=== PATIENT | male | born 1960 | race Two or more races ===

== ENCOUNTER 2020-05-21 09:23 | Inpatient (IN) | payer OTHER ==
[~2020-05-21] VITALS: Ht 172.7 cm; Wt 70.1 kg
[2020-05-21] MEDS ORDERED: MethylPREDNISolone SOD SUCC 125 MG/2 ML VIAL IVP ONE (09:45)
[2020-05-21] MEDS ORDERED: AMLO-257 PO (10:04)
[2020-05-21] MEDS ORDERED: ENAL20 PO (10:04)
[2020-05-21] MEDS ORDERED: SITA100 PO (10:04)
[2020-05-21 10:53] LABS: BASOPHILS % (AUTO) 0.4 % (0.0-2.0); EOSINOPHILS % (AUTO) 0.3 % (1.0-6.0); HEMATOCRIT 30.4 % (41-53); HEMOGLOBIN 10.3 g/dL (13.5-17.5); LYMPHOCYTES % (AUTO) 10.7 % (22.0-44.0); MEAN CORPUSCULAR HEMOGLOBIN 30.3 pg (26.0-34.0); MEAN CORPUSCULAR VOLUME 89 fL (80-100); MONOCYTES # (AUTO) 0.4 K/uL (0.1-1.0); MONOCYTES % (AUTO) 4.6 % (2.0-9.0); PLATELET COUNT (AUTO) 322 K/uL (150-450); RED BLOOD CELL COUNT(AUTO) 3.42 MIL/uL (4.50-5.90); RED CELL DISTRIBUTION WIDTH 12.6 % (11.5-14.5)
[2020-05-21 11:12] LABS: CALCIUM, TOTAL 8.5 mg/dL (8.8-10.5); CREATININE 2.33 mg/dL (0.60-1.30); POTASSIUM 4.3 mmol/L (3.5-5.1)
[2020-05-21 11:24] LABS: ALBUMIN 2.1 g/dL (3.4-5.0); BILIRUBIN,TOTAL 0.2 mg/dL (0.1-1.0); TOTAL PROTEIN, SERUM 6.6 g/dL (6.4-8.2)
[2020-05-21] MEDS ORDERED: DEXTROSE 50%-WATER 25 GM/50 ML SYRINGE IVP PRN (12:45)
[2020-05-21] MEDS ORDERED: SODIUM CHLORIDE 0.9% 1,000 ML IV ONE (12:45)
[2020-05-21] MEDS: AmLODIPine BESYLATE 5 MG TABLET PO SCH (12:54)
[2020-05-21] MEDS: LOSARTAN POTASSIUM 25 MG TABLET PO SCH ×2 (13:53→21:55)
[2020-05-21] MEDS: INSULIN LISPRO 100 UNITS/ML SQ PRN ×2 (18:02→22:00)
[2020-05-21 18:13] VITALS: BP 160/100
[2020-05-21 20:18] VITALS: BP 173/94
[2020-05-21 21:42] LABS: GLUCOMETER DEV NAME(LOC) 5N.1B; GLUCOSE,POINT OF CARE 215 MG/DL (70-110)
[2020-05-21] MEDS: HEPARIN SODIUM,PORCINE 5,000 UNITS/ML VIAL SQ SCH (21:55)
[2020-05-21] MEDS: DOCUSATE SODIUM 100 MG CAPSULE PO SCH (21:55)
[2020-05-21] MEDS: ACETAMINOPHEN 325 MG TABLET PO PRN (22:06)
[2020-05-21 23:31] LABS: GLUCOMETER DEV NAME(LOC) 5N.1B; GLUCOSE,POINT OF CARE 202 MG/DL (70-110)
[2020-05-22 00:17] VITALS: BP 142/78
[2020-05-22 01:28] LABS: APPEARANCE,URINE CLEAR (CLEAR); BILIRUBIN,URINE NEGATIVE (NEGATIVE); GLUCOSE, URINE (UA) 500 mg/dL (NEGATIVE); KETONES,URINE NEGATIVE (NEGATIVE); LEUKOCYTE ESTERASE ,URINE NEGATIVE (NEGATIVE); NITRATE,URINE NEGATIVE (NEGATIVE); OCCULT BLOOD,URINE SMALL (NEGATIVE); PROTEIN,URINE SEE CONFIRM (NEGATIVE); UROBILINOGEN,URINE 0.2 mg/dL (<=1.0)
[2020-05-22 01:36] LABS: AMPHET/METH SCREEN,URINE NEGATIVE (NEGATIVE); BARBITURATE SCREEN, URINE NEGATIVE (NEGATIVE); BENZODIAZEPINES SCREEN,URINE NEGATIVE (NEGATIVE); CANNABINOID SCREEN,URINE NEGATIVE (NEGATIVE); COCAINE SCREEN,URINE NEGATIVE (NEGATIVE); METHADONE SCREEN, URINE NEGATIVE (NEGATIVE); OPIATE SCREEN,URINE NEGATIVE (NEGATIVE); PHENCYCLIDINE SCREEN,URINE NEGATIVE (NEGATIVE)
[2020-05-22 01:42] LABS: SULFOSALICYLIC ACID,URINE 4+ (Negative)
[2020-05-22 01:43] LABS: BACTERIA,URINE Rare /HPF (None Seen)
[2020-05-22 05:18] VITALS: BP 190/94
[2020-05-22] MEDS ORDERED: LABETALOL HCL 5 MG/ML 20 ML VIAL IVP ONE (06:00)
[2020-05-22 07:04] LABS: CALCIUM, TOTAL 8.8 mg/dL (8.8-10.5); CREATININE 2.53 mg/dL (0.60-1.30); POTASSIUM 3.6 mmol/L (3.5-5.1)
[2020-05-22 07:20] LABS: GLUCOMETER DEV NAME(LOC) 5N.1B; GLUCOSE,POINT OF CARE 161 MG/DL (70-110)
[2020-05-22 08:06] VITALS: BP 152/82
[2020-05-22] MEDS: FAMOTIDINE 20 MG TABLET PO SCH (08:18)
[2020-05-22] MEDS: HEPARIN SODIUM,PORCINE 5,000 UNITS/ML VIAL SQ SCH ×2 (08:18→21:38)
[2020-05-22] MEDS: DOCUSATE SODIUM 100 MG CAPSULE PO SCH ×2 (08:18→21:37)
[2020-05-22] MEDS: LOSARTAN POTASSIUM 25 MG TABLET PO SCH ×2 (08:18→21:37)
[2020-05-22] MEDS: AmLODIPine BESYLATE 5 MG TABLET PO SCH (08:18)
[2020-05-22] MEDS: ASPIRIN 81 MG CHEWABLE TABLET PO SCH (08:18)
[2020-05-22] MEDS: INSULIN LISPRO 100 UNITS/ML SQ PRN ×4 (10:36→21:48)
[2020-05-22 11:28] VITALS: BP 155/86
[2020-05-22 11:52] LABS: GLUCOMETER DEV NAME(LOC) 5N.1B; GLUCOSE,POINT OF CARE 387 MG/DL (70-110)
[2020-05-22] MEDS ORDERED: SitaGLIPtin PHOSPHATE 100 MG TABLET PO ONE (13:00)
[2020-05-22] MEDS ORDERED: AmLODIPine BESYLATE 5 MG TABLET PO ONE (13:00)
[2020-05-22] MEDS: SODIUM CHLORIDE 0.45% 1,000 ML IV SCH (18:23)
[2020-05-22 20:02] VITALS: BP 158/97
[2020-05-22 20:40] LABS: GLUCOMETER DEV NAME(LOC) 5N.3; GLUCOSE,POINT OF CARE 232 MG/DL (70-110)
[2020-05-22] MEDS: ACETAMINOPHEN 325 MG TABLET PO PRN (21:38)
[2020-05-22 23:35] VITALS: BP 145/93
[2020-05-23 00:18] LABS: CREATININE,URINE RANDOM 52.2 mg/dL (30.0-125.0)
[2020-05-23 04:34] VITALS: BP 163/93
[2020-05-23 05:02] LABS: GLUCOMETER DEV NAME(LOC) 5N.3; GLUCOSE,POINT OF CARE 213 MG/DL (70-110)
[2020-05-23] MEDS: SODIUM CHLORIDE 0.45% 1,000 ML IV SCH (06:29)
[2020-05-23] MEDS: INSULIN LISPRO 100 UNITS/ML SQ PRN ×3 (06:39→17:03)
[2020-05-23 07:40] VITALS: BP 169/95
[2020-05-23] MEDS: ASPIRIN 81 MG CHEWABLE TABLET PO SCH (08:03)
[2020-05-23] MEDS: DOCUSATE SODIUM 100 MG CAPSULE PO SCH ×2 (08:03→21:09)
[2020-05-23] MEDS: FAMOTIDINE 20 MG TABLET PO SCH (08:04)
[2020-05-23] MEDS: AmLODIPine BESYLATE 10 MG TABLET PO SCH (08:05)
[2020-05-23] MEDS: HEPARIN SODIUM,PORCINE 5,000 UNITS/ML VIAL SQ SCH ×2 (08:05→21:10)
[2020-05-23] MEDS: LOSARTAN POTASSIUM 25 MG TABLET PO SCH ×2 (08:05→11:34)
[2020-05-23] MEDS: SitaGLIPtin PHOSPHATE 50 MG TABLET PO SCH (08:05)
[2020-05-23] MEDS ORDERED: SitaGLIPtin PHOSPHATE 100 MG TABLET PO SCH (09:00)
[2020-05-23] MEDS ORDERED: LOSARTAN POTASSIUM 50 MG TABLET PO ONE (10:30)
[2020-05-23 11:25] VITALS: BP 162/92
[2020-05-23 11:35] LABS: BASOPHILS % (AUTO) 0.6 % (0.0-2.0); EOSINOPHILS % (AUTO) 0.4 % (1.0-6.0); HEMATOCRIT 29.5 % (41-53); HEMOGLOBIN 10.1 g/dL (13.5-17.5); LYMPHOCYTES # (AUTO) 1.1 K/uL (1.0-4.8); LYMPHOCYTES % (AUTO) 14.9 % (22.0-44.0); MEAN CORPUSCULAR HEMOGLOBIN 30.3 pg (26.0-34.0); MEAN CORPUSCULAR HGB CONC 34.2 G/dL (31.0-37.0); MEAN CORPUSCULAR VOLUME 89 fL (80-100); MONOCYTES # (AUTO) 0.4 K/uL (0.1-1.0); NEUTROPHILS # (AUTO) 6.1 K/uL (1.8-7.7); NEUTROPHILS % (AUTO) 79.1 % (40.0-70.0); PLATELET COUNT (AUTO) 301 K/uL (150-450); RED BLOOD CELL COUNT(AUTO) 3.33 MIL/uL (4.50-5.90); RED CELL DISTRIBUTION WIDTH 12.6 % (11.5-14.5)
[2020-05-23 11:44] LABS: CALCIUM, TOTAL 8.7 mg/dL (8.8-10.5); CREATININE 2.42 mg/dL (0.60-1.30); POTASSIUM 4.1 mmol/L (3.5-5.1)
[2020-05-23 11:47] LABS: MAGNESIUM 1.6 mg/dL (1.80-2.40); PHOSPHORUS 3.6 mg/dL (2.5-4.9)
[2020-05-23 15:17] VITALS: BP 183/91
[2020-05-23] MEDS ORDERED: CloNIDine HCL 0.2 MG TABLET ONE (18:06)
[2020-05-23] MEDS ORDERED: HydrALAZINE HCL 20 MG/ML VIAL IVP PRN (18:15)
[2020-05-23] MEDS ORDERED: CloNIDine HCL 0.2 MG TABLET PO ONE (18:30)
[2020-05-23 19:32] VITALS: BP 127/76
[2020-05-23] MEDS ORDERED: MAGNESIUM OXIDE 400 MG TABLET PO ONE (20:15)
[2020-05-23] MEDS: LOSARTAN POTASSIUM 50 MG TABLET PO SCH (21:11)
[2020-05-23 23:48] VITALS: BP 152/83
[2020-05-24] MEDS: CloNIDine HCL 0.1 MG TABLET PO SCH ×3 (00:38→17:09)
[2020-05-24 04:43] VITALS: BP 146/80
[2020-05-24 06:52] LABS: % IRON SATURATION 49.6 % (30-44)
[2020-05-24 07:07] LABS: CALCIUM, TOTAL 8.2 mg/dL (8.8-10.5); CREATININE 2.49 mg/dL (0.60-1.30); MAGNESIUM 1.4 mg/dL (1.80-2.40); PHOSPHORUS 3.5 mg/dL (2.5-4.9); POTASSIUM 3.7 mmol/L (3.5-5.1)
[2020-05-24 07:55] VITALS: BP 165/94
[2020-05-24] MEDS: SitaGLIPtin PHOSPHATE 50 MG TABLET PO SCH (08:06)
[2020-05-24] MEDS: AmLODIPine BESYLATE 10 MG TABLET PO SCH (08:06)
[2020-05-24] MEDS: ASPIRIN 81 MG CHEWABLE TABLET PO SCH (08:06)
[2020-05-24] MEDS: DOCUSATE SODIUM 100 MG CAPSULE PO SCH ×2 (08:06→21:00)
[2020-05-24] MEDS: LOSARTAN POTASSIUM 50 MG TABLET PO SCH ×2 (08:06→21:17)
[2020-05-24] MEDS: LOSARTAN POTASSIUM 25 MG TABLET PO SCH ×2 (08:06→21:00)
[2020-05-24] MEDS: FAMOTIDINE 20 MG TABLET PO SCH (08:06)
[2020-05-24] MEDS: HEPARIN SODIUM,PORCINE 5,000 UNITS/ML VIAL SQ SCH ×2 (08:07→21:00)
[2020-05-24] MEDS ORDERED: MAGNESIUM SULFATE 3 GM in DEXTROSE 5%-WATER 100 ML IV ONE (09:30)
[2020-05-24 11:41] VITALS: BP 144/91
[2020-05-24] MEDS: INSULIN LISPRO 100 UNITS/ML SQ PRN ×2 (11:53→17:06)
[2020-05-24 17:09] VITALS: BP 177/88
[2020-05-24 20:08] VITALS: BP 158/79
[2020-05-24] MEDS ORDERED: AMLO10TA4 PO (20:13)
[2020-05-24] MEDS ORDERED: ASPI-1450 PO (20:14)
[2020-05-24] MEDS ORDERED: CLON0.2T PO (20:15)
[2020-05-24] MEDS ORDERED: LOSA50TA37 PO (20:15)
[2020-05-24 20:40] LABS: GLUCOMETER DEV NAME(LOC) 5N.3; GLUCOSE,POINT OF CARE 299 MG/DL (70-110)
[2020-05-25 07:26] LABS: GLUCOMETER DEV NAME(LOC) 5S.2B; GLUCOSE,POINT OF CARE 235 MG/DL (70-110)
[2020-05-25 07:55] LABS: GLUCOMETER DEV NAME(LOC) 5N.1B; GLUCOSE,POINT OF CARE 225 MG/DL (70-110)
[2020-05-25 07:55] LABS: GLUCOMETER DEV NAME(LOC) 5N.1B; GLUCOSE,POINT OF CARE 279 MG/DL (70-110)
[2020-05-25 07:55] LABS: GLUCOMETER DEV NAME(LOC) 5N.1B; GLUCOSE,POINT OF CARE 185 MG/DL (70-110)
[2020-05-25 07:56] LABS: GLUCOMETER DEV NAME(LOC) 5N.1B; GLUCOSE,POINT OF CARE 130 MG/DL (70-110)
[2020-05-25 07:56] LABS: GLUCOMETER DEV NAME(LOC) 5N.1B; GLUCOSE,POINT OF CARE 117 MG/DL (70-110)
== END 2020-05-24 22:43 | disposition home or self-care (01) | DRG 684 ==
LOC: EMS 09:39 → 5N 12:40 → 5S 05-24 04:14
PROVIDERS: ADMIT Internal Medicine; ATTEND Internal Medicine
DX: N17.9 Acute kidney failure, unspecified (principal); E11.65 Type 2 diabetes mellitus with hyperglycemia; E11.22 Type 2 diabetes mellitus with diabetic chronic kidney disease; I12.9 Hypertensive chronic kidney disease with stage 1 through stage 4 chronic kidney disease, or unspecified chronic kidney disease; I16.0 Hypertensive urgency; D64.9 Anemia, unspecified; Z20.822 Contact with and (suspected) exposure to COVID-19; N18.9 Chronic kidney disease, unspecified; Z79.84 Long term (current) use of oral hypoglycemic drugs; Z79.899 Other long term (current) drug therapy; Z83.3 Family history of diabetes mellitus; R07.89 Other chest pain
CPT/HCPCS: 76770; 82043; 82570; 82728; 83540; 83550; 83735; 84100; 84156; 84300; 84540; 93005; 93306; 99285; J1644; J2930; J3475; J3490; J7030; J7060; 36415-L1; 36415-TC; 71045-TC; U0003